=== PATIENT | male | born 1980 | race Caucasian/White ===

== ENCOUNTER 2024-04-28 16:01 | Emergency (ER) | payer BC, SELFPAY ==
[2024-04-28] MEDS ORDERED: methylPREDNISolone Sod Succ/PF 125 MG/2 ML VIAL ONE (16:24)
== END 2024-04-28 16:50 | disposition home or self-care (01) ==
LOC: BURERS 16:01
DX: M54.50 Low back pain, unspecified (principal)
CPT/HCPCS: 96374; J2919